=== PATIENT | female | born 2005 | race Caucasian/White ===

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

== ENCOUNTER 2025-03-08 04:21 | Emergency (ER) | payer OTHER | END 2025-03-08 06:08 | disposition home or self-care (01) | LOC: FB.ED 04:21 | DX: S22.21XA Fracture of manubrium, initial encounter for closed fracture (principal); S22.078A Other fracture of T9-T10 vertebra, initial encounter for closed fracture; Z79.899 Other long term (current) drug therapy; V49.9XXA Car occupant (driver) (passenger) injured in unspecified traffic accident, initial encounter | CPT/HCPCS: 70450; 71250; 72125; 99284 ==